=== PATIENT | male | born 2000 | race Caucasian/White ===

== ENCOUNTER 2021-08-24 18:27 | Emergency (ER) | payer OTHER ==
[2021-08-24] MEDS ORDERED: Boostrix 0.5 ML (Tdap) VIAL ONE (20:23)
[2021-08-24] MEDS ORDERED: HYDROcodone/Acetaminophen 5/325 mg Tablet ONE (20:23)
[2021-08-24] MEDS ORDERED: CEFAZOLIN 2 GM VIAL ONE (20:23)
[2021-08-24] MEDS ORDERED: Bacitracin 1 PK ONE (21:33)
== END 2021-08-24 21:53 | disposition home or self-care (01) ==
LOC: ERS 18:27
DX: S68.120A Partial traumatic metacarpophalangeal amputation of right index finger, initial encounter (principal); E78.5 Hyperlipidemia, unspecified; F17.290 Nicotine dependence, other tobacco product, uncomplicated; W31.9XXA Contact with unspecified machinery, initial encounter
CPT/HCPCS: 90471; 90715; 96374; J0690